=== PATIENT | male | born 1955 | race Caucasian/White ===

== ENCOUNTER 2021-07-16 20:04 | Emergency (ER) | payer BC ==
[2021-07-16 20:58] LABS: CHLORIDE,CL 106 mEq/L (98-106); SODIUM,NA 144 mEq/L (136-145)
[2021-07-16 22:10] VITALS: PULSE 102
[2021-07-16 22:14] VITALS: BP 140/92
== END 2021-07-16 21:10 | disposition home or self-care (01) ==
LOC: CC.ED 20:04
DX: R33.9 Retention of urine, unspecified (principal)
CPT/HCPCS: 36415; 51702; 80053; 81001; 85025; 99284; 99284-25

== ENCOUNTER 2022-02-02 11:29 | Inpatient (IN) | payer BC ==
[2022-02-02 11:57] LABS: CHLORIDE,CL 98 mEq/L (98-106); SODIUM,NA 134 mEq/L (136-145)
[2022-02-02 12:04] LABS: ESTIMATED GFR 60 mL/min (>=60)
[2022-02-02] MEDS ORDERED: Ketorolac 30 MG/ML SDV IVPUSH ONE (13:36)
[2022-02-02] MEDS ORDERED: Sodium Chloride 0.9% 1,000 ML IV ONE ×2 (13:40→23:40)
[2022-02-02] MEDS ORDERED: Ondansetron 4 MG Tab.DIS PO PRN (13:45)
[2022-02-02] MEDS: cefTRIAXone 1 GM Vial IVPUSH SCH (13:59)
[2022-02-02] MEDS ORDERED: Acetaminophen 500 MG Tab PO PRN (23:37)
[2022-02-02] MEDS ORDERED: Ibuprofen 200 MG Tab PO PRN (23:38)
[2022-02-02] MEDS ORDERED: Calcium Carbonate 500 MG Tab.Chew PO ONE (23:39)
[2022-02-03] MEDS: Enoxaparin 40 MG/0.4 ML Syringe SUBCUT SCH (07:44)
[2022-02-03] MEDS: cefTRIAXone 1 GM Vial IVPUSH SCH (12:22)
[2022-02-03] MEDS ORDERED: Sodium Chloride 0.9% 1,000 ML IV ONE ×2 (13:29→13:34)
[2022-02-04] MEDS: Enoxaparin 40 MG/0.4 ML Syringe SUBCUT SCH (08:04)
[2022-02-04] MEDS: cefTRIAXone 1 GM Vial IVPUSH SCH (12:56)
[2022-02-05] MEDS: Enoxaparin 40 MG/0.4 ML Syringe SUBCUT SCH (08:21)
[2022-02-05 08:35] VITALS: BP 131/77; PULSE 83
[2022-02-05] MEDS: cefTRIAXone 1 GM Vial IVPUSH SCH (11:48)
== END 2022-02-05 16:11 | disposition home or self-care (01) | DRG 383 ==
LOC: CC.FCMC 11:29 → CC.MS 11:29 → INTOOBSV 12:16 → OBSVTOIN 02-04 11:10
PROVIDERS: ADMIT Physician Assistant Medical; ATTEND Nurse Practitioner Family
DX: L03.116 Cellulitis of left lower limb (principal); N40.0 Benign prostatic hyperplasia without lower urinary tract symptoms; Z91.041 Radiographic dye allergy status; Z79.899 Other long term (current) drug therapy
CPT/HCPCS: 36415; 80053; 85025; 85651; 85652; 86140; 87040; 96361; 96372; 96375; 96376; 99220; 99225; 99232; 99238; A9270-GY; G0378; J0696; J1650; J1885; J7030

== ENCOUNTER 2022-08-24 21:03 | Emergency (ER) | payer BC ==
[2022-08-24 21:18] VITALS: PULSE 103
[2022-08-24 21:26] VITALS: BP 157/87
== END 2022-08-24 22:02 | disposition home or self-care (01) ==
LOC: CC.ED 21:03
DX: R33.9 Retention of urine, unspecified (principal); Z91.041 Radiographic dye allergy status
CPT/HCPCS: 51702; 81001; 99283; 99284

== ENCOUNTER → 2022-09-28 | Day surgery (SDC) | payer BC ==
[~2022-09-28] MED LIST: Ketamine 200 MG/20 ML MDV ONE; Lactated Ringers 1,000 ML IV SCH; Propofol 200 MG/20 ML SDV ONE; fentaNYL 50 MCG/ML SDV ONE
[2022-09-28 09:31] VITALS: BP 117/66; PULSE 66
== END ==
LOC: CC.SDS 07:13
PROVIDERS: ATTEND Family Medicine
DX: Z12.11 Encounter for screening for malignant neoplasm of colon (principal); D12.3 Benign neoplasm of transverse colon; D12.5 Benign neoplasm of sigmoid colon; D12.8 Benign neoplasm of rectum; Z79.899 Other long term (current) drug therapy; N40.0 Benign prostatic hyperplasia without lower urinary tract symptoms
CPT/HCPCS: 00811; J2704; J3010; J3490; J7120

== ENCOUNTER 2024-01-04 11:17 | Emergency (ER) | payer BC ==
[2024-01-04] MEDS: cefTRIAXone 2 GM Vial IVPUSH ONE (11:38)
[2024-01-04 16:10] VITALS: BP 124/76; PULSE 79
== END 2024-01-04 12:00 | disposition home or self-care (01) ==
LOC: CC.ED 11:17
DX: L03.116 Cellulitis of left lower limb (principal); Z79.899 Other long term (current) drug therapy; Z91.041 Radiographic dye allergy status
CPT/HCPCS: 96374; 99283-25; J0696

== ENCOUNTER 2024-05-08 07:43 | Emergency (ER) | payer BC ==
[2024-05-08 08:17] LABS: BASOPHILS ABSOLUTE AUTO 0.02 10^3/uL (0.00-0.50); BASOPHILS PERCENT AUTO 0.3 % (0-1); EOSINOPHILS ABSOLUTE AUTO 0.26 10^3/uL (0.00-1.50); EOSINOPHILS PERCENT AUTO 3.4 % (0-6); HEMATOCRIT 47.3 % (42.0-52.0); HEMOGLOBIN 15.4 g/dL (14.0-18.0); IMMATURE GRAN ABSOLUTE AUTO 0.01 10^3/uL (0.00-0.49); IMMATURE GRAN PERCENT AUTO 0.1 % (0.0-4.9); LYMPHOCYTES ABSOLUTE AUTO 2.98 10^3/uL (0.60-5.00); LYMPHOCYTES PERCENT AUTO 38.7 % (24-44); MEAN CORPUSCULAR HEMOGLOBIN 30.6 pg (27.0-32.0); MEAN CORPUSCULAR HGB CONC 32.6 g/dL (32.0-36.0); MEAN CORPUSCULAR VOLUME 93.8 fL (83.0-97.0); MONOCYTES ABSOLUTE AUTO 0.77 10^3/uL (0.00-1.50); NEUTROPHILS ABSOLUTE AUTO 3.67 x10^3/uL (1.80-8.00); NEUTROPHILS PERCENT AUTO 47.5 % (41-71); PLATELET COUNT,PLT 206 10^3/uL (150-400); RED BLOOD CELL COUNT 5.04 x10^6/uL (4.50-6.00); WHITE BLOOD CELL COUNT,WBC 7.7 10^3/uL (4.0-11.0)
[2024-05-08 08:38] LABS: ALANINE AMINOTRANSFERASE,ALT 45 U/L (12-78); ALBUMIN 3.8 g/dL (3.4-5.0); ALKALINE PHOSPHATASE 94 U/L (46-116); ASPARTATE AMNIOTRANSFERASE,AST 26 U/L (15-37); BILIRUBIN TOTAL 0.3 mg/dL (0.0-1.0); BLOOD UREA NITROGEN,BUN 15 mg/dL (7-18); CALCIUM 9.1 mg/dL (8.4-10.1); CARBON DIOXIDE,CO2 27 mmol/L (21-32); CHLORIDE,CL 107 mEq/L (98-106); CREATININE 1.2 mg/dL (0.7-1.3); EST CRCL DRUG DOSING (CG) 54.32 mL/min; GLUCOSE RANDOM 108 mg/dL (75-99); MAGNESIUM 1.8 mg/dL (1.8-2.4); PRO B-TYPE NATRIUR PEPT,BNPPRO 112 pg/mL (0-1000); PROTEIN TOTAL,TP 6.7 g/dL (6.4-8.2); SODIUM,NA 143 mEq/L (136-145)
[2024-05-08 08:46] LABS: ESTIMATED GFR 65 mL/min (>=60)
[2024-05-08 08:47] LABS: C-REACTIVE PROTEIN < 0.50 mg/dL (<=0.50)
[2024-05-08] MEDS: Aspirin 81 MG Tab.Chew PO STA (08:55)
[2024-05-08] MEDS ORDERED: Sodium Chloride 0.9% 10 ML Syringe FLUSH PRN (08:56)
[2024-05-08] MEDS: Heparin Sodium 5,000 Units/ML Vial IVPUSH ONE (09:06)
[2024-05-08 09:09] LABS: APPEARANCE,URINE CLEAR (CLEAR); BILIRUBIN,URINE NEGATIVE (NEGATIVE); COLOR,URINE YELLOW (YELLOW); GLUCOSE,URINE NEGATIVE (NEGATIVE); KETONES,URINE NEGATIVE (NEGATIVE); LEUKOCYTE ESTERASE,URINE NEGATIVE (NEGATIVE); NITRITE,URINE NEGATIVE (NEGATIVE); OCCULT BLOOD,URINE NEGATIVE (NEGATIVE); PROTEIN,URINE NEGATIVE (NEGATIVE); UROBILINOGEN,URINE 0.2 EU/dL (0.2-1.0)
[2024-05-08] MEDS: Heparin Sodium/0.45% NaCl 500 ML IV SCH (09:15)
[2024-05-08 11:15] VITALS: BP 153/93; PULSE 78
== END 2024-05-08 11:34 ==
LOC: SUPCPDRO 07:43 → CC.ED 07:43
DX: I21.4 Non-ST elevation (NSTEMI) myocardial infarction (principal); R42 Dizziness and giddiness; E78.00 Pure hypercholesterolemia, unspecified; Z87.891 Personal history of nicotine dependence; Z91.041 Radiographic dye allergy status; Z79.82 Long term (current) use of aspirin; Z79.899 Other long term (current) drug therapy
CPT/HCPCS: 36415; 71046; 80053; 81003; 83735; 83880; 84484; 85025; 85379; 85730; 86140; 93005; 96365; 96366; 99285; A9270; J1644; 93010; 99284